=== PATIENT | female | born 1940 | race Caucasian/White ===

== ENCOUNTER 2023-03-29 10:04 | Emergency (ER) | payer BC, SELFPAY ==
[2023-03-29 10:07] VITALS: BP 157/74
--- NOTE | 2023-03-29 10:30 | EDRN ---
Pt received in rm 11, /p trip and fall on Sun, c/o left shoulder and ribcage pain, right shoulder pain, and pain with swelling to left hand. Denies head trauma, on Eliquis. Hx of Afib, PPM, right rotator cuff sx.
--- NOTE | 2023-03-29 10:43 | ED.GENMED ---
History of Present Illness
<MANASA Frances Last Filed: 03/29/23 18:32>
General
Chief Complaint: Fall
Source: patient
Exam Limitations: none
Time Seen by Provider: 03/29/23 10:13
Nursing documentation reviewed up to this point in time: agreed with
Travel History
Have you had any contact with someone who has COVID-19?: No
Do you have any symptoms of coronavirus? Fever > 100 degrees, chills, cough, shortness of breath, sore throat, loss of taste or smell, muscle aches, or headache?: No
History of Present Illness
History of Present Illness:
This is a 83-year-old female with past medical history of A-fib on Eliquis, polycythemia vera, CVA who is presenting to emergency department with left-sided chest wall pain following a fall that occurred 2 days ago. She states that she was walking
on the sidewalk when she tripped and the edge of her foot caught the curb and she subsequently fell forward. She states that she fell onto her left side. She states that worse breathing and laying down. She states that it is most comfortable
sitting up. She states that the or lifting left has been taking Tylenol pain which has been helping the edge off. She states that his rib fractures felt exactly like this. She also admits to some right sided upper trapezius pain. She denies
abdominal pain, shortness of breath dizziness, lightheadedness, headache. Patient does have a history of hemorrhage from a fall in the past.
Past History
<MANASA Frances Last Filed: 03/29/23 18:32>
Past History
ED Past Medical History: Arrthythmia (A. 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
sagittal sinus thrombosis (2016))
ED Past Surgical History: Appendectomy, Cardiac (pacemaker), (times 2) and Other (Mohs surgery on cheek 2020)
Social History
Tobacco: Non-smoker
Alcohol: Occasional
Drug: None
Personal:
Living: with family
Employment: Retired
Family History
Family History: Other (suspected Marfan syndrome and father as well as grandson, Lawrence-Danlos in niece COPD-mom)
Review of Systems
<Clarisa Sutherland PA-C - Last Filed: 03/29/23 18:32>
Review of Systems
All Other Systems: ROS reviewed and negative except as documented in HPI and ROS
Phy Exam
<Clarisa Sutherland PA-C - Last Filed: 03/29/23 18:32>
Physical Exam
Physical Exam:
General: Patient is well-appearing and in no acute distress
Skin: Warm and dry, no rashes or lesions, and no areas of ecchymosis
Cardiac: Regular rate. Tenderness palpation of the left external chest wall underneath the left breast.
Pulm: Normal respiratory effort bilaterally, no wheezes, rales, rhonchi
Musculoskeletal: patient seen spontaneously moving cervical spine. Patient has no midline tenderness to palpation of the cervical spine. Patient does have some tenderness palpation of the right upper trapezius. Patient has limited active range of
motion of b/l upper extremities due to this motion exacerbating her left sided rib pain.
Course
<Clarisa Sutherland PA-C - Last Filed: 03/29/23 18:32>
Orders/Labs/Results
Orders:
Orders
03/29/23 11:34
CT Head W/o Iv Contrast Urgent
Comment:
Reason For Exam: fall
CR Ribs-kemi 4 Vw W/pa Chest Urgent
Comment:
Reason For Exam: left sided rib pain
03/29/23 11:43
CT Cervical Spine W/o Iv Contr Urgent
Comment:
Reason For Exam: fall
CR Shoulder - Right Min 2 View Urgent
Comment:
Reason For Exam: right upper shoulder pain following fall
03/29/23 12:59
Hydrocodone 5/APAP 325 [Roy[place] 5/325] 1 tablet PO NOW STA
Vital Signs
Initial and Last Documented VS:
Initial Vital Signs
Temp Pulse Resp BP Pulse Ox
97.2 F 78 16 157/74 96
03/29/23 10:07 03/29/23 10:07 03/29/23 10:07 03/29/23 10:07 03/29/23 10:07
Last Documented Vital Signs
Temp Pulse Resp BP Pulse Ox
97.2 F 60 16 140/65 95
03/29/23 10:07 03/29/23 15:12 03/29/23 15:12 03/29/23 15:12 03/29/23 15:12
<Derek Julian MD - Last Filed: 03/29/23 13:03>
Orders/Labs/Results
Orders:
Orders
03/29/23 11:34
CT Head W/o Iv Contrast Urgent
Comment:
Reason For Exam: fall
CR Ribs-kemi 4 Vw W/pa Chest Urgent
Comment:
Reason For Exam: left sided rib pain
03/29/23 11:43
CT Cervical Spine W/o Iv Contr Urgent
Comment:
Reason For Exam: fall
CR Shoulder - Right Min 2 View Urgent
Comment:
Reason For Exam: right upper shoulder pain following fall
03/29/23 12:59
Hydrocodone 5/APAP 325 [Roy[place] 5/325] 1 tablet PO NOW STA
Vital Signs
Initial and Last Documented VS:
Initial Vital Signs
Temp Pulse Resp BP Pulse Ox
97.2 F 78 16 157/74 96
03/29/23 10:07 03/29/23 10:07 03/29/23 10:07 03/29/23 10:07 03/29/23 10:07
Last Documented Vital Signs
Temp Pulse Resp BP Pulse Ox
97.2 F 60 16 140/65 95
03/29/23 10:07 03/29/23 15:12 03/29/23 15:12 03/29/23 15:12 03/29/23 15:12
<Clarisa Sutherland PA-C - Last Filed: 03/29/23 18:32>
MDM/Problems Addressed
Differential Diagnosis Includes:
ddx include rib fracture, epidural hematoma, hemorrhage musculoskeletal sprain/strain,
MDM/Problems Addressed:
Left-sided rib pain
Right shoulder pain
Chronic conditions affecting care: HTN, Arrhythmia, COPD and Other (polycythemia vera)
Acute Exacerbation and/or Progression of Chronic Illness:
n/a
<Clarisa Sutherland PA-C - Last Filed: 03/29/23 18:32>
*Pulse Oximetry
Patient hypoxic: no
*Critical Care Note
Total Time (30-74mins, 75-104mins- exclusive of procedures): Not Applicable
Data Reviewed
Review of Other/Old Records Reveals: Discharge Summary (reviewed discharge summary from 05/02/2021)
Prescriptions/Medications Considered But Not Given:
n/a
Further Testing Considered But Not Given:
n/a
<Clarisa Sutherland PA-C - Last Filed: 03/29/23 18:32>
Patient Management
Escalation/DeEscalation of care consider admission/obs:
This is a 83-year-old female with a past medical history of COPD, hypertension, A-fib on Eliquis who presents emergency department today following a fall that occurred 2 days ago. She states that she was walking on the curb when she lost her
balance and tripped, and fell onto her left side. Currently she complains of left-sided rib pain and right shoulder pain. She is well-appearing, and on exam she has no areas of ecchymosis, no crepitus, but does have moderate pain to palpation of
the left external chest wall as well as some mild tenderness palpation of the right shoulder and surrounding musculature. Her imaging does not show any evidence of rib fracture, intracranial bleeding, shoulder fracture or dislocation. Patient was
given a vicodin tablet here in the ER which significantly improved her pain. Patient did feel drowsy with this, advised her to take half a tablet at home.
<Clarisa Sutherland PA-C - Last Filed: 03/29/23 18:32>
Update Note
Update Note:
Upon revaluation after one dose of vicodin, patient feels that her pain has midly improved
ED Attending Note
<Clarisa Sutherland PA-C - Last Filed: 03/29/23 18:32>
-
Portions of this chart may have been created with voice recognition software.� Occasional wrong word or��sound alike� substitutions may have occurred due to the inherent limitations of voice recognition software.
<Derek Julian MD - Last Filed: 03/29/23 13:03>
ED Attending Note
Patient seen and examined by attending physician: Yes
I performed the substantive portion of visit, reviewed & personally made and approve the management plan that is documented in note by myself or ISAAC.: Yes
ED Attending Note:
Patient slipped and fell 2 days ago. No syncope. Complaining of left lateral rib pain. Mild right neck pain and mild right shoulder pain. No head injury. Patient is anticoagulated.
TRAUMA EXAM:
VITAL SIGNS: Vital signs reviewed, cooperative
DISTRESS: No active disease
EYES: Pupils reactive, no orbital trauma
NOSE: No deformity or epistaxis
FACE AND SCALP: No scalp or facial trauma
NECK: Supple mild right paracervical tenderness
BACK: Back nontender, pelvis stable to compression
RESPIRATORY: No distress, breath sounds normal, tender left lateral lower chest wall. No crepitus
CARDIAC: No murmur, pulses equal and strong
ABDOMEN: Soft nontender bowel sounds normal
SKIN: Skin intact no bleeding, color normal
EXTREMITIES: Mild tenderness to the right shoulder although able to abduct without difficulty
NEUROLOGICAL: Alert, oriented, no motor deficits
PSYCH: Mood affect normal
Plan: Although no head trauma given the mechanism of fall and anticoagulation head CT will be done. Cervical spine CT for right paracervical tenderness. Rib series. Doubt pneumothorax. No indication for abdominal scanning as the abdomen is
nontender. No left upper quadrant tenderness. Gait is normal. In no distress.
Likely will be pain management and follow-up
Discharge Plan
Departure
Patient Disposition: Home (Routine Discharge)
Date of Disposition: 03/29/23
Time of Disposition: 15:51
Patient with high blood pressure during this ER visit?: Yes
Condition: Good
Discharge Problem:
Fall, Rib pain on left side
Instructions: Preventing falls in adults, BLOOD PRESSURE
Prescriptions:
New
hydrocodone-acetaminophen 5-300 mg tablet
1 tab PO Q6H PRN (Reason: Pain) Qty: 10 0RF
No Action
hydroxyurea 500 MG capsule
500 mg PO BID
hydroxyurea 500 MG capsule
500 mg PO MOFR@12
Patient Comments:
04/28/21: Per pt, she takes an additional dose of hydroxyurea on Sunday and Sunday in the afternoon
Lactobac 2-Bifido 1-S. therm [High Potency Probiotic] 1 CAP capsule
1 cap PO DAILY
cholecalciferol (vitamin D3) 2,000 UNITS tablet
2,000 units PO DAILY
apixaban [Eliquis] 5 MG tablet
5 mg PO BID
levothyroxine 50 MCG tablet
50 mcg PO DAILY AT 0700
midodrine 5 MG tablet
2.5 mg PO TID@0800,1300,1800 Qty: 90 0RF
ferrous sulfate [FeroSul] 325 MG tablet
325 mg PO DAILY Qty: 30 0RF
Referrals:
Anirudh Zambrano DO [Family Provider] -
Activity Restrictions/Additional Instructions:
We have sent the Vicodin tablets to our pharmacy. Considering you felt a bit drowsy here with the one tablet, I would recommend breaking the tablet in half. You can take one every 6 hours as needed for pain. Please do not take acetaminophen while
taking this drug, as this drug contains acetaminophen.
Please follow up with your primary care provider next week to ensure the resolution of your symptoms and for reassessment.
Please return to emergency department should you have an acute worsening of your pain, experience chest pain, shortness of breath, or other concerning signs or symptoms.
Interventions
Interventions:
*Risk Screen - Suicide Last Done: 03/29/23 10:28
*General Assessment Last Done: 03/29/23 10:07
*Neglect/Abuse Screening Last Done: 03/29/23 10:28
ED- Fall Risk Assessment Last Done: 03/29/23 16:02
*ED COVID-19 Vaccine History Last Done: 03/29/23 10:07
*Nursing Disposition Last Done: 03/29/23 16:02
ED-Musculoskeletal Assessment Last Done: 03/29/23 10:29
ED- Neurological Assessment Last Done: 03/29/23 10:29
ED-Skin Assessment Last Done: 03/29/23 10:29
Discharge Date and Time
Discharge Date/Time: 03/29/23 16:02
[2023-03-29 12:55] VITALS: BP 161/78
[2023-03-29] MEDS: NORCO 5/325 1 TABLET PO (13:05)
[2023-03-29 15:12] VITALS: BP 140/65
== END 2023-03-29 16:02 | disposition home or self-care (01) ==
LOC: EMR 10:04
PROVIDERS: EMERGENCY PHYSICIAN Emergency Medicine; FAMILY PHYSICIAN Internal Medicine Hematology & Oncology
DX: R07.81 Pleurodynia (principal); M25.511 Pain in right shoulder; M79.642 Pain in left hand; M79.89 Other specified soft tissue disorders; W01.0XXA Fall on same level from slipping, tripping and stumbling without subsequent striking against object, initial encounter; Y92.480 Sidewalk as the place of occurrence of the external cause; Y93.01 Activity, walking, marching and hiking; J44.9 Chronic obstructive pulmonary disease, unspecified; I10 Essential (primary) hypertension; I48.91 Unspecified atrial fibrillation; D45 Polycythemia vera; M79.7 Fibromyalgia; E03.9 Hypothyroidism, unspecified; E78.00 Pure hypercholesterolemia, unspecified; Z79.01 Long term (current) use of anticoagulants; Z95.0 Presence of cardiac pacemaker; Z85.828 Personal history of other malignant neoplasm of skin; Z86.73 Personal history of transient ischemic attack (TIA), and cerebral infarction without residual deficits
CPT/HCPCS: 99284; 70450; 71111; 72125; 73030

== ENCOUNTER → 2023-04-16 12:04 | Outpatient (REF) | payer BC, SELFPAY ==
[2023-04-16 15:23] LABS: % Basophils 1.6 % (0-2); % Eosinophils 0.9 % (0-6); % Immature Granulocytes 2.3 % (0-0.5); % Neutrophils 92.2 % (42.2-75.2); Absolute Basophils 0.6 10^3/uL (0-0.2); Absolute Eosinophils 0.3 10^3/uL (0-0.7); Absolute Immature Granulocytes 0.8 10^3/uL (0-0.05); Absolute Lymphocytes 0.7 10^3/uL (1.2-3.4); Absolute Monocytes 0.4 10^3/uL (0.1-0.6); Absolute Neutrophils 33.5 10^3/uL (1.4-6.5); Hemoglobin 13.5 g/dL (12.0-16.0); Mean Corp Hgb Conc. 30.7 g/dL (33.0-37.0); Mean Corpuscular Hgb 30.7 pg (27.0-31.0); Nucleated Red Blood Cells % 0 %; Platelet Count 451 10^3/uL (130-400); Red Cell Dist. Width 17.1 % (11.5-14.5); White Blood Cell Count 36.4 10^3/uL (4.8-10.8)
== END ==
LOC: HWLAB 12:04
PROVIDERS: ATTENDING PHYSICIAN Internal Medicine Hematology & Oncology; FAMILY PHYSICIAN Family Medicine
DX: D45 Polycythemia vera (principal)
CPT/HCPCS: 36415; 85025

== ENCOUNTER → 2023-05-14 11:58 | Outpatient (REF) | payer BC, SELFPAY ==
[2023-05-14 15:37] LABS: % Basophils 1.3 % (0-2); % Eosinophils 1.4 % (0-6); % Immature Granulocytes 1.4 % (0-0.5); % Lymphocytes 2.8 % (20.5-51.1); % Monocytes 1.2 % (1.7-9.3); % Neutrophils 91.9 % (42.2-75.2); Absolute Basophils 0.3 10^3/uL (0-0.2); Absolute Eosinophils 0.4 10^3/uL (0-0.7); Absolute Immature Granulocytes 0.4 10^3/uL (0-0.05); Absolute Lymphocytes 0.7 10^3/uL (1.2-3.4); Absolute Monocytes 0.3 10^3/uL (0.1-0.6); Absolute Neutrophils 24.5 10^3/uL (1.4-6.5); Hematocrit 46.5 % (37.0-47.0); Hemoglobin 13.8 g/dL (12.0-16.0); Mean Corp Hgb Conc. 29.7 g/dL (33.0-37.0); Mean Corpuscular Hgb 29.2 pg (27.0-31.0); Mean Corpuscular Volume 98.3 fL (81.0-99.0); Mean Platelet Volume 12.2 fL (7.4-10.4); Nucleated Red Blood Cells % 0 %; Platelet Count 394 10^3/uL (130-400); Red Blood Cell Count 4.73 10^6/uL (4.20-5.40); Red Cell Dist. Width 17.6 % (11.5-14.5); White Blood Cell Count 26.7 10^3/uL (4.8-10.8)
== END ==
LOC: HWLAB 11:58
PROVIDERS: ATTENDING PHYSICIAN Internal Medicine Cardiovascular Disease; FAMILY PHYSICIAN Family Medicine; REFERRING PHYSICIAN Internal Medicine Hematology & Oncology
DX: E78.5 Hyperlipidemia, unspecified (principal); D45 Polycythemia vera
CPT/HCPCS: 36415; 85025

== ENCOUNTER → 2023-06-27 13:10 | Outpatient (REF) | payer BC, SELFPAY ==
[2023-06-27 16:00] LABS: % Basophils 1.6 % (0-2); % Eosinophils 0.6 % (0-6); % Immature Granulocytes 1.6 % (0-0.5); % Lymphocytes 2.7 % (20.5-51.1); % Monocytes 1.2 % (1.7-9.3); % Neutrophils 92.3 % (42.2-75.2); Absolute Basophils 0.3 10^3/uL (0-0.2); Absolute Eosinophils 0.1 10^3/uL (0-0.7); Absolute Immature Granulocytes 0.3 10^3/uL (0-0.05); Absolute Lymphocytes 0.6 10^3/uL (1.2-3.4); Absolute Monocytes 0.2 10^3/uL (0.1-0.6); Absolute Neutrophils 19.2 10^3/uL (1.4-6.5); Hematocrit 39.4 % (37.0-47.0); Hemoglobin 11.8 g/dL (12.0-16.0); Mean Corp Hgb Conc. 29.9 g/dL (33.0-37.0); Mean Corpuscular Volume 96.8 fL (81.0-99.0); Mean Platelet Volume 11.7 fL (7.4-10.4); Nucleated Red Blood Cells % 0 %; Platelet Count 496 10^3/uL (130-400); Red Blood Cell Count 4.07 10^6/uL (4.20-5.40); Red Cell Dist. Width 17.2 % (11.5-14.5); White Blood Cell Count 20.8 10^3/uL (4.8-10.8)
== END ==
LOC: HWLAB 13:10
PROVIDERS: ATTENDING PHYSICIAN Internal Medicine Hematology & Oncology; FAMILY PHYSICIAN Family Medicine
DX: D45 Polycythemia vera (principal)
CPT/HCPCS: 36415; 85025

== ENCOUNTER → 2023-08-03 11:39 | Outpatient (REF) | payer BC, SELFPAY ==
[2023-08-03 15:07] LABS: % Basophils 1.4 % (0-2); % Eosinophils 0.4 % (0-6); % Immature Granulocytes 2.9 % (0-0.5); % Lymphocytes 3.3 % (20.5-51.1); % Monocytes 1.2 % (1.7-9.3); % Neutrophils 90.8 % (42.2-75.2); Absolute Basophils 0.4 10^3/uL (0-0.2); Absolute Eosinophils 0.1 10^3/uL (0-0.7); Absolute Immature Granulocytes 0.9 10^3/uL (0-0.05); Absolute Monocytes 0.4 10^3/uL (0.1-0.6); Absolute Neutrophils 27.6 10^3/uL (1.4-6.5); Hematocrit 40.1 % (37.0-47.0); Hemoglobin 12.1 g/dL (12.0-16.0); Mean Corp Hgb Conc. 30.2 g/dL (33.0-37.0); Mean Corpuscular Hgb 29.1 pg (27.0-31.0); Mean Corpuscular Volume 96.4 fL (81.0-99.0); Mean Platelet Volume 11.9 fL (7.4-10.4); Nucleated Red Blood Cells % 0 %; Platelet Count 434 10^3/uL (130-400); Red Blood Cell Count 4.16 10^6/uL (4.20-5.40); Red Cell Dist. Width 17.5 % (11.5-14.5); White Blood Cell Count 30.4 10^3/uL (4.8-10.8)
[2023-08-03 15:16] LABS: Iron 33 ug/dl (37-170)
[2023-08-03 15:26] LABS: Percent Saturation 7 % (20-50); Total Iron Binding Capacity 464 ug/dl (265-497)
[2023-08-03 15:51] LABS: Ferritin 9.5 ng/ml (11.1-264.0)
== END ==
LOC: HWLAB 11:39
PROVIDERS: ATTENDING PHYSICIAN Internal Medicine Hematology & Oncology; FAMILY PHYSICIAN Family Medicine
DX: D45 Polycythemia vera (principal)
CPT/HCPCS: 36415; 82728; 83540; 83550; 85025

== ENCOUNTER → 2023-09-04 08:09 | Outpatient (REF) | payer BC, SELFPAY ==
[2023-09-04 10:31] LABS: % Basophils 1.7 % (0-2); % Eosinophils 0.7 % (0-6); % Immature Granulocytes 1.8 % (0-0.5); % Lymphocytes 2.6 % (20.5-51.1); % Monocytes 0.9 % (1.7-9.3); % Neutrophils 92.3 % (42.2-75.2); Absolute Basophils 0.5 10^3/uL (0-0.2); Absolute Eosinophils 0.2 10^3/uL (0-0.7); Absolute Immature Granulocytes 0.5 10^3/uL (0-0.05); Absolute Lymphocytes 0.7 10^3/uL (1.2-3.4); Absolute Monocytes 0.2 10^3/uL (0.1-0.6); Absolute Neutrophils 24.7 10^3/uL (1.4-6.5); Hematocrit 40.9 % (37.0-47.0); Hemoglobin 12.2 g/dL (12.0-16.0); Mean Corp Hgb Conc. 29.8 g/dL (33.0-37.0); Mean Corpuscular Hgb 28.8 pg (27.0-31.0); Mean Corpuscular Volume 96.7 fL (81.0-99.0); Mean Platelet Volume 11.4 fL (7.4-10.4); Nucleated Red Blood Cells % 0 %; Platelet Count 382 10^3/uL (130-400); Red Blood Cell Count 4.23 10^6/uL (4.20-5.40); Red Cell Dist. Width 17.6 % (11.5-14.5); White Blood Cell Count 26.7 10^3/uL (4.8-10.8)
== END ==
LOC: HWLAB 08:09
PROVIDERS: ATTENDING PHYSICIAN Internal Medicine Hematology & Oncology; FAMILY PHYSICIAN Family Medicine
DX: D45 Polycythemia vera (principal)
CPT/HCPCS: 36415; 85025

== ENCOUNTER → 2023-10-01 06:41 | Day surgery (SDC) | payer BC, SELFPAY | LOC: GI 06:41 | PROVIDERS: ATTENDING PHYSICIAN Internal Medicine | DX: R19.4 Change in bowel habit (principal); K57.30 Diverticulosis of large intestine without perforation or abscess without bleeding; D12.0 Benign neoplasm of cecum | CPT/HCPCS: 45385; 88305 ==

== ENCOUNTER → 2023-10-30 07:59 | Outpatient (REF) | payer BC, SELFPAY ==
[2023-10-30 09:48] LABS: Hematocrit 40.6 % (37.0-47.0); Hemoglobin 12.4 g/dL (12.0-16.0); Mean Corp Hgb Conc. 30.5 g/dL (33.0-37.0); Mean Corpuscular Hgb 29.2 pg (27.0-31.0); Mean Corpuscular Volume 95.8 fL (81.0-99.0); Mean Platelet Volume 11.3 fL (7.4-10.4); Platelet Count 404 10^3/uL (130-400); Red Blood Cell Count 4.24 10^6/uL (4.20-5.40); Red Cell Dist. Width 17.8 % (11.5-14.5); White Blood Cell Count 25.9 10^3/uL (4.8-10.8)
[2023-10-30 09:50] LABS: ALT (SGPT) 25 U/L (0-35); AST (SGOT) 49 U/L (14-36); Albumin 4.4 g/dl (3.5-5.0); Alkaline Phosphatase 125 U/L (38-126); Blood Urea Nitrogen 17 mg/dl (7-17); Carbon Dioxide 29 mmol/L (22-30); Chloride 105 mmol/L (98-107); Glucose 87 mg/dl (70-99); HDL Cholesterol 72 mg/dl; LDL Cholesterol, Calculated 83 mg/dl; Potassium 4.5 mmol/L (3.5-5.1); Sodium 145 mmol/L (135-145); Total Bilirubin 0.8 mg/dl (0.2-1.3); Total Cholesterol 181 mg/dl (50-199); Total Protein 6.8 g/dl (6.3-8.2); Triglyceride 130 mg/dl (10-149); Very Low Density Lipoprotein 26 mg/dl (0-30); eGFR 41.31
[2023-10-30 10:54] LABS: % Basophils 2.1 % (0-2); % Eosinophils 0.9 % (0-6); % Immature Granulocytes 1.7 % (0-0.5); % Lymphocytes 3.8 % (20.5-51.1); % Monocytes 1.6 % (1.7-9.3); % Neutrophils 89.9 % (42.2-75.2); Absolute Basophils 0.5 10^3/uL (0-0.2); Absolute Eosinophils 0.2 10^3/uL (0-0.7); Absolute Immature Granulocytes 0.4 10^3/uL (0-0.05); Absolute Monocytes 0.4 10^3/uL (0.1-0.6); Absolute Neutrophils 23.3 10^3/uL (1.4-6.5); Nucleated Red Blood Cells % 0 %
== END ==
LOC: HWLAB 07:59
PROVIDERS: ATTENDING PHYSICIAN Internal Medicine Hematology & Oncology; FAMILY PHYSICIAN Family Medicine; REFERRING PHYSICIAN Internal Medicine Cardiovascular Disease
DX: E78.5 Hyperlipidemia, unspecified (principal); D45 Polycythemia vera
CPT/HCPCS: 36415; 80053; 80061; 85025

== ENCOUNTER → 2023-12-03 10:14 | Outpatient (REF) | payer BC, SELFPAY ==
[2023-12-03 13:05] LABS: Free T4 1.83 ng/dl (0.78-2.19)
[2023-12-03 13:19] LABS: TSH 7.24 uIU/ml (0.47-4.68)
[2023-12-03 13:27] LABS: % Basophils 1.4 % (0-2); % Eosinophils 0.6 % (0-6); % Immature Granulocytes 1.9 % (0-0.5); % Lymphocytes 1.8 % (20.5-51.1); % Monocytes 1.4 % (1.7-9.3); % Neutrophils 92.9 % (42.2-75.2); Absolute Basophils 0.5 10^3/uL (0-0.2); Absolute Eosinophils 0.2 10^3/uL (0-0.7); Absolute Immature Granulocytes 0.7 10^3/uL (0-0.05); Absolute Lymphocytes 0.6 10^3/uL (1.2-3.4); Absolute Monocytes 0.5 10^3/uL (0.1-0.6); Absolute Neutrophils 32.1 10^3/uL (1.4-6.5); Hematocrit 39.2 % (37.0-47.0); Hemoglobin 11.6 g/dL (12.0-16.0); Mean Corp Hgb Conc. 29.6 g/dL (33.0-37.0); Mean Corpuscular Hgb 28.6 pg (27.0-31.0); Mean Corpuscular Volume 96.6 fL (81.0-99.0); Mean Platelet Volume 11.9 fL (7.4-10.4); Nucleated Red Blood Cells % 0 %; Platelet Count 417 10^3/uL (130-400); Red Blood Cell Count 4.06 10^6/uL (4.20-5.40); Red Cell Dist. Width 17.3 % (11.5-14.5); White Blood Cell Count 34.5 10^3/uL (4.8-10.8)
== END ==
LOC: HWLAB 10:14
PROVIDERS: ATTENDING PHYSICIAN Internal Medicine Hematology & Oncology; FAMILY PHYSICIAN Family Medicine; REFERRING PHYSICIAN Internal Medicine Cardiovascular Disease
DX: I48.91 Unspecified atrial fibrillation (principal); Z79.899 Other long term (current) drug therapy; E03.9 Hypothyroidism, unspecified; D45 Polycythemia vera
CPT/HCPCS: 36415; 84439; 84443; 85025

== ENCOUNTER → 2024-01-08 11:35 | Outpatient (REF) | payer BC, SELFPAY ==
[2024-01-08 17:09] LABS: % Basophils 1.3 % (0-2); % Eosinophils 0.9 % (0-6); % Immature Granulocytes 3.8 % (0-0.5); % Lymphocytes 2.3 % (20.5-51.1); % Neutrophils 90.7 % (42.2-75.2); Absolute Basophils 0.6 10^3/uL (0-0.2); Absolute Eosinophils 0.4 10^3/uL (0-0.7); Absolute Immature Granulocytes 1.7 10^3/uL (0-0.05); Absolute Lymphocytes 1.1 10^3/uL (1.2-3.4); Absolute Monocytes 0.4 10^3/uL (0.1-0.6); Absolute Neutrophils 41.9 10^3/uL (1.4-6.5); Hematocrit 37.8 % (37.0-47.0); Hemoglobin 11.3 g/dL (12.0-16.0); Mean Corp Hgb Conc. 29.9 g/dL (33.0-37.0); Mean Corpuscular Hgb 29.7 pg (27.0-31.0); Mean Corpuscular Volume 99.5 fL (81.0-99.0); Mean Platelet Volume 11.8 fL (7.4-10.4); Nucleated Red Blood Cells % 0 %; Platelet Count 564 10^3/uL (130-400); White Blood Cell Count 46.1 10^3/uL (4.8-10.8)
== END ==
LOC: HWLAB 11:35
PROVIDERS: ATTENDING PHYSICIAN Internal Medicine Hematology & Oncology; FAMILY PHYSICIAN Family Medicine
DX: D45 Polycythemia vera (principal)
CPT/HCPCS: 36415; 85025

== ENCOUNTER → 2024-02-13 11:42 | Outpatient (REF) | payer BC, SELFPAY ==
[2024-02-13 14:56] LABS: Hematocrit 39.8 % (37.0-47.0); Hemoglobin 11.6 g/dL (12.0-16.0); Mean Corp Hgb Conc. 29.1 g/dL (33.0-37.0); Mean Corpuscular Hgb 28.9 pg (27.0-31.0); Mean Platelet Volume 11.6 fL (7.4-10.4); Platelet Count 463 10^3/uL (130-400); Red Blood Cell Count 4.02 10^6/uL (4.20-5.40); Red Cell Dist. Width 18.1 % (11.5-14.5); White Blood Cell Count 28.7 10^3/uL (4.8-10.8)
[2024-02-13 15:03] LABS: Iron 39 ug/dl (37-170)
[2024-02-13 15:12] LABS: Percent Saturation 8 % (20-50); Total Iron Binding Capacity 458 ug/dl (265-497)
[2024-02-13 15:23] LABS: % Basophils 1.7 % (0-2); % Immature Granulocytes 1.6 % (0-0.5); % Lymphocytes 2.5 % (20.5-51.1); % Monocytes 0.9 % (1.7-9.3); % Neutrophils 92.3 % (42.2-75.2); Absolute Basophils 0.5 10^3/uL (0-0.2); Absolute Eosinophils 0.3 10^3/uL (0-0.7); Absolute Immature Granulocytes 0.5 10^3/uL (0-0.05); Absolute Lymphocytes 0.7 10^3/uL (1.2-3.4); Absolute Monocytes 0.3 10^3/uL (0.1-0.6); Absolute Neutrophils 26.5 10^3/uL (1.4-6.5); Nucleated Red Blood Cells % 0.1 %
[2024-02-13 15:36] LABS: Ferritin 9.8 ng/ml (11.1-264.0)
== END ==
LOC: HWLAB 11:42
PROVIDERS: ATTENDING PHYSICIAN Internal Medicine Hematology & Oncology; FAMILY PHYSICIAN Family Medicine
DX: D45 Polycythemia vera (principal)
CPT/HCPCS: 36415; 82728; 83540; 83550; 85025

== ENCOUNTER → 2024-03-19 13:17 | Outpatient (REF) | payer BC, SELFPAY | LOC: HWRAD 13:17 | PROVIDERS: ATTENDING PHYSICIAN Nurse Practitioner Family | DX: J20.9 Acute bronchitis, unspecified (principal) | CPT/HCPCS: 71046 ==

== ENCOUNTER → 2024-04-15 11:30 | Outpatient (REF) | payer BC, SELFPAY ==
[2024-04-15 12:55] LABS: Hematocrit 41.5 % (37.0-47.0); Hemoglobin 12.3 g/dL (12.0-16.0); Mean Corp Hgb Conc. 29.6 g/dL (33.0-37.0); Mean Corpuscular Hgb 28.5 pg (27.0-31.0); Mean Corpuscular Volume 96.3 fL (81.0-99.0); Mean Platelet Volume 11.3 fL (7.4-10.4); Platelet Count 537 10^3/uL (130-400); Red Blood Cell Count 4.31 10^6/uL (4.20-5.40); Red Cell Dist. Width 18.3 % (11.5-14.5); White Blood Cell Count 28.5 10^3/uL (4.8-10.8)
[2024-04-15 14:15] LABS: % Basophils 0.8 % (0-2); % Eosinophils 0.9 % (0-6); % Immature Granulocytes 1.5 % (0-0.5); % Lymphocytes 2.6 % (20.5-51.1); % Monocytes 1.4 % (1.7-9.3); % Neutrophils 92.8 % (42.2-75.2); Absolute Basophils 0.2 10^3/uL (0-0.2); Absolute Eosinophils 0.3 10^3/uL (0-0.7); Absolute Immature Granulocytes 0.4 10^3/uL (0-0.05); Absolute Lymphocytes 0.8 10^3/uL (1.2-3.4); Absolute Monocytes 0.4 10^3/uL (0.1-0.6); Absolute Neutrophils 26.5 10^3/uL (1.4-6.5); Nucleated Red Blood Cells % 0.1 %
== END ==
LOC: HWRAD 11:30
PROVIDERS: ATTENDING PHYSICIAN Nurse Practitioner Family; FAMILY PHYSICIAN Family Medicine; REFERRING PHYSICIAN Internal Medicine Hematology & Oncology
DX: M54.50 Low back pain, unspecified (principal); D45 Polycythemia vera
CPT/HCPCS: 36415; 72110; 85025

== ENCOUNTER → 2024-05-08 13:08 | Outpatient (REF) | payer BC, MEDICARE, SELFPAY ==
[2024-05-08 15:50] LABS: % Eosinophils 0.4 % (0-6); % Immature Granulocytes 1.7 % (0-0.5); % Lymphocytes 3.3 % (20.5-51.1); % Monocytes 1.5 % (1.7-9.3); % Neutrophils 91.1 % (42.2-75.2); Absolute Basophils 0.5 10^3/uL (0-0.2); Absolute Eosinophils 0.1 10^3/uL (0-0.7); Absolute Immature Granulocytes 0.4 10^3/uL (0-0.05); Absolute Lymphocytes 0.8 10^3/uL (1.2-3.4); Absolute Monocytes 0.4 10^3/uL (0.1-0.6); Absolute Neutrophils 22.4 10^3/uL (1.4-6.5); Hematocrit 41.8 % (37.0-47.0); Hemoglobin 11.9 g/dL (12.0-16.0); Mean Corp Hgb Conc. 28.5 g/dL (33.0-37.0); Mean Corpuscular Hgb 28.4 pg (27.0-31.0); Mean Corpuscular Volume 99.8 fL (81.0-99.0); Mean Platelet Volume 11.6 fL (7.4-10.4); Normal RBC Morphology No; Nucleated Red Blood Cells % 0.1 %; Platelet Count 503 10^3/uL (130-400); Red Blood Cell Count 4.19 10^6/uL (4.20-5.40); Red Cell Dist. Width 18.3 % (11.5-14.5); White Blood Cell Count 24.6 10^3/uL (4.8-10.8)
[2024-05-08 15:51] LABS: Hypochromasia 2+; Stomatocytes 3+
[2024-05-08 15:53] LABS: Microcytosis 1+
== END ==
LOC: HWRAD 13:08
PROVIDERS: ATTENDING PHYSICIAN Nurse Practitioner Family; FAMILY PHYSICIAN Family Medicine; OTHER PHYSICIAN Internal Medicine Cardiovascular Disease; OTHER PHYSICIAN Physician Assistant; REFERRING PHYSICIAN Internal Medicine Hematology & Oncology
DX: M85.80 Other specified disorders of bone density and structure, unspecified site (principal); D45 Polycythemia vera; S32.018 Other fracture of first lumbar vertebra; I48.91 Unspecified atrial fibrillation; Z79.899 Other long term (current) drug therapy; E03.9 Hypothyroidism, unspecified
CPT/HCPCS: 36415; 84439; 84443; 85025

== ENCOUNTER → 2024-06-18 13:16 | Outpatient (REF) | payer BC, SELFPAY | LOC: MRI 13:16 | PROVIDERS: ATTENDING PHYSICIAN Nurse Practitioner Family; FAMILY PHYSICIAN Family Medicine | DX: M51.360 Other intervertebral disc degeneration, lumbar region with discogenic back pain only (principal) | CPT/HCPCS: 72148; 76014; 76015 ==

== ENCOUNTER → 2024-07-02 11:22 | Outpatient (REF) | payer BC, SELFPAY ==
[2024-07-02 16:59] LABS: Hematocrit 40.4 % (37.0-47.0); Hemoglobin 11.8 g/dL (12.0-16.0); Mean Corp Hgb Conc. 29.2 g/dL (33.0-37.0); Mean Corpuscular Hgb 29.6 pg (27.0-31.0); Mean Corpuscular Volume 101.3 fL (81.0-99.0); Mean Platelet Volume 12.8 fL (7.4-10.4); Platelet Count 296 10^3/uL (130-400); Red Blood Cell Count 3.99 10^6/uL (4.20-5.40); Red Cell Dist. Width 18.4 % (11.5-14.5); White Blood Cell Count 15.3 10^3/uL (4.8-10.8)
[2024-07-02 17:02] LABS: ALT (SGPT) 25 U/L (0-35); AST (SGOT) 35 U/L (14-36); Albumin 3.9 g/dl (3.5-5.0); Alkaline Phosphatase 98 U/L (38-126); Blood Urea Nitrogen 18 mg/dl (7-17); Calcium 9.7 mg/dl (8.4-10.2); Carbon Dioxide 28 mmol/L (22-30); Chloride 105 mmol/L (98-107); Glucose 91 mg/dl (70-99); Iron 38 ug/dl (37-170); Potassium 4.6 mmol/L (3.5-5.1); Sodium 141 mmol/L (135-145); Total Bilirubin 0.7 mg/dl (0.2-1.3); Total Protein 6.3 g/dl (6.3-8.2); eGFR 56.25
[2024-07-02 17:13] LABS: Percent Saturation 8 % (20-50); Total Iron Binding Capacity 449 ug/dl (265-497)
[2024-07-02 17:20] LABS: Vitamin D, 25-OH*** 47.8 ng/mL (30-80)
[2024-07-02 17:52] LABS: % Basophils 1.8 % (0-2); % Eosinophils 0.9 % (0-6); % Immature Granulocytes 1.5 % (0-0.5); % Lymphocytes 3.7 % (20.5-51.1); % Neutrophils 91.1 % (42.2-75.2); Absolute Basophils 0.3 10^3/uL (0-0.2); Absolute Eosinophils 0.1 10^3/uL (0-0.7); Absolute Immature Granulocytes 0.2 10^3/uL (0-0.05); Absolute Lymphocytes 0.6 10^3/uL (1.2-3.4); Absolute Monocytes 0.2 10^3/uL (0.1-0.6); Nucleated Red Blood Cells % 0 %
[2024-07-02 18:10] LABS: Folate 3.2 ng/ml (2.76-20); Vitamin B12 > 1000 pg/ml (239-931)
== END ==
LOC: HWLAB 11:22
PROVIDERS: ATTENDING PHYSICIAN Internal Medicine Cardiovascular Disease; FAMILY PHYSICIAN Family Medicine; REFERRING PHYSICIAN Internal Medicine Hematology & Oncology
DX: I10 Essential (primary) hypertension (principal); I48.91 Unspecified atrial fibrillation; D45 Polycythemia vera
CPT/HCPCS: 36415; 80053; 82306; 82607; 82728; 82746; 83540; 83550; 85025

== ENCOUNTER → 2024-07-30 07:56 | Outpatient (REF) | payer BC, SELFPAY ==
[2024-07-30 09:38] LABS: Hematocrit 40.4 % (37.0-47.0); Hemoglobin 11.7 g/dL (12.0-16.0); Mean Corpuscular Hgb 29.6 pg (27.0-31.0); Mean Corpuscular Volume 102.3 fL (81.0-99.0); Mean Platelet Volume 11.9 fL (7.4-10.4); Platelet Count 388 10^3/uL (130-400); Red Blood Cell Count 3.95 10^6/uL (4.20-5.40); Red Cell Dist. Width 19.2 % (11.5-14.5); White Blood Cell Count 25.4 10^3/uL (4.8-10.8)
[2024-07-30 09:57] LABS: % Basophils 1.4 % (0-2); % Eosinophils 0.6 % (0-6); % Lymphocytes 2.9 % (20.5-51.1); % Monocytes 1.4 % (1.7-9.3); % Neutrophils 91.7 % (42.2-75.2); ALT (SGPT) 31 U/L (0-35); AST (SGOT) 45 U/L (14-36); Absolute Basophils 0.4 10^3/uL (0-0.2); Absolute Eosinophils 0.2 10^3/uL (0-0.7); Absolute Immature Granulocytes 0.5 10^3/uL (0-0.05); Absolute Lymphocytes 0.7 10^3/uL (1.2-3.4); Absolute Monocytes 0.4 10^3/uL (0.1-0.6); Absolute Neutrophils 23.3 10^3/uL (1.4-6.5); Albumin 4.4 g/dl (3.5-5.0); Alkaline Phosphatase 104 U/L (38-126); Blood Urea Nitrogen 15 mg/dl (7-17); Calcium 9.7 mg/dl (8.4-10.2); Carbon Dioxide 25 mmol/L (22-30); Chloride 110 mmol/L (98-107); Glucose 90 mg/dl (70-99); HDL Cholesterol 63 mg/dl; LDL Cholesterol, Calculated 69 mg/dl; Nucleated Red Blood Cells % 0 %; Potassium 4.6 mmol/L (3.5-5.1); Sodium 144 mmol/L (135-145); Total Bilirubin 0.7 mg/dl (0.2-1.3); Total Cholesterol 160 mg/dl (50-199); Total Protein 6.6 g/dl (6.3-8.2); Triglyceride 142 mg/dl (10-149); Very Low Density Lipoprotein 28 mg/dl (0-30); eGFR 45.19
[2024-07-30 11:42] LABS: TSH 9.08 uIU/ml (0.47-4.68)
[2024-07-30 13:49] LABS: Free T4 1.92 ng/dl (0.78-2.19)
== END ==
LOC: HWLAB 07:56
PROVIDERS: ATTENDING PHYSICIAN Physician Assistant; FAMILY PHYSICIAN Nurse Practitioner Family; OTHER PHYSICIAN Family Medicine; REFERRING PHYSICIAN Internal Medicine Hematology & Oncology
DX: E03.8 Other specified hypothyroidism (principal); Z00.00 Encounter for general adult medical examination without abnormal findings; M81.0 Age-related osteoporosis without current pathological fracture; E03.9 Hypothyroidism, unspecified; D45 Polycythemia vera
CPT/HCPCS: 36415; 80053; 80061; 82306; 84439; 84443; 85025

== ENCOUNTER 2024-08-11 06:22 | Emergency (ER) | payer BC, SELFPAY ==
[2024-08-11 06:25] VITALS: BP 155/75
--- NOTE | 2024-08-11 08:06 | ED.GENMED ---
History of Present Illness
General
Chief Complaint: Skin Problem
Source: patient
Exam Limitations: none
Time Seen by Provider: 08/11/24 06:49
Nursing documentation reviewed up to this point in time: agreed with
History of Present Illness
History of Present Illness:
Pt presents to ED secondary to painful swelling in her left buttock over the past one week. She has had similar abscess in the past, which she has drained in the past on her own. However, due to its current location, she has not been able to reach
the region. Denies fever. Denies nausea/vomiting. Denies trauma. Denies difficulty with bowel movement.
Past History
Past History
ED Past Medical History: Arrthythmia (A. 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
sagittal sinus thrombosis (2016))
ED Past Surgical History: Appendectomy, Cardiac (pacemaker), (times 2) and Other (Mohs surgery on cheek 2020)
Social History
Tobacco: Non-smoker
Alcohol: Occasional
Drug: None
Personal:
Living: with family
Employment: Retired
Family History
Family History: Other (suspected Marfan syndrome and father as well as grandson, Lawrence-Danlos in niece COPD-mom)
Review of Systems
Review of Systems
Allergies reviewed?: Yes
All Other Systems: ROS reviewed and negative except as documented in HPI and ROS
Constitutional: Reports no symptoms
ABD/GI: Reports no symptoms
Musculoskeletal: Reports no symptoms
Skin: Reports other (buttock abscess)
Neurological: Reports no symptoms
Phy Exam
Physical Exam
Physical Exam:
General: well nourished female, in mild painful distress. Afebrile
Heent: nc/at. eomi
Abd: soft and nontender.
Neuro: aao x 3. no focal neurological deficit.
Skin: an approx 0.5 cm lesion noted along left buttock, lateral to anus, with open purulent drainage. no surrounding erythema/fluctuance
Psych: pleasant and cooperative
Course
Orders/Labs/Results
Orders:
Orders
08/11/24 09:09
Wound Culture [Wound/Abscess/Other Culture] Urgent
ROSANA Source: Buttock
Specimen Description:
Date Specimen was Collected: 08/11/24
Time Specimen was Collected: 09:08
Vital Signs
Initial and Last Documented VS:
Initial Vital Signs
Pulse Resp BP Pulse Ox
70 18 155/75 97
08/11/24 06:25 08/11/24 06:25 08/11/24 06:25 08/11/24 06:25
Last Documented Vital Signs
Pulse Resp BP Pulse Ox
84 20 142/86 99
08/11/24 08:30 08/11/24 08:30 08/11/24 08:30 08/11/24 08:30
Procedures
Incision/Drainage/Joint Aspiration
Left Buttock:
Anethesia: 1% Lidocaine with Epi
Preparation: cleaned with alcohol wipe
Type of procedure: incise and drain
Nature of site: abscess
Description of abscess: less than 3cm
How much fluid was obtained?: small amount
Fluid description: purulent
Treatment: left open for drainage
MDM/Problems Addressed
MDM/Problems Addressed:
Area opened further with #11 blade with expression of small amount of pus. Will advise continual warm compress/sitz bath along with referral to colorectal surgery for re-evaluation. Bactrim started x 5 days. Pt and spouse expressed understanding at
time of discharge.
*Pulse Oximetry
Patient hypoxic: no (97%)
*Critical Care Note
Total Time (30-74mins, 75-104mins- exclusive of procedures): Not Applicable
ED Attending Note
-
Portions of this chart may have been created with voice recognition software.� Occasional wrong word or��sound alike� substitutions may have occurred due to the inherent limitations of voice recognition software.
Discharge Plan
Departure
Patient Disposition: Home (Routine Discharge)
Date of Disposition: 08/11/24
Time of Disposition: 08:06
Patient with high blood pressure during this ER visit?: Yes
Condition: Good
Discharge Problem:
[place]at[place]-rectal abscess
Instructions: Skin Abscess
Prescriptions:
New
sulfamethoxazole-trimethoprim [Bactrim DS] 800-160 mg tablet
1 tab PO Q12H Qty: 10 0RF
No Action
hydroxyurea 500 MG capsule
500 mg PO BID
hydroxyurea 500 MG capsule
500 mg PO MOFR@12
Patient Comments:
04/28/21: Per pt, she takes an additional dose of hydroxyurea on Sunday and Sunday in the afternoon
Lactobac 2-Bifido 1-S. therm [High Potency Probiotic] 1 CAP capsule
1 cap PO DAILY
cholecalciferol (vitamin D3) 2,000 UNITS tablet
2,000 units PO DAILY
apixaban [Eliquis] 5 MG tablet
5 mg PO BID
levothyroxine 50 MCG tablet
50 mcg PO DAILY AT 0700
midodrine 5 MG tablet
2.5 mg PO TID@0800,1300,1800 Qty: 90 0RF
ferrous sulfate [FeroSul] 325 MG tablet
325 mg PO DAILY Qty: 30 0RF
hydrocodone-acetaminophen 5-300 mg tablet
1 tab PO Q6H PRN (Reason: Pain) Qty: 10 0RF
Referrals:
Johnny Mcdonough MD [Active, ColoRectal]
Derek Gardner DO [Family Provider, Family Practice]
Activity Restrictions/Additional Instructions:
As discussed, please follow-up with your primary concern and/or referred to colorectal surgeon for reevaluation. Your prescriptions were sent electronically to [facility] in [place]. Please continue to apply warm compress to your wound
in buttock, as often as you can.
Interventions
Interventions:
*Risk Screen - Suicide Last Done: 08/11/24 06:25
*General Assessment Last Done: 08/11/24 08:30
*Neglect/Abuse Screening Last Done: 08/11/24 06:25
*Nursing Disposition Last Done: 08/11/24 09:13
ED-Skin Assessment Last Done: 08/11/24 08:30
Discharge Date and Time
Discharge Date/Time: 08/11/24 09:14
Print Language: MALTESE
[2024-08-11 08:30] VITALS: BP 142/86
== END 2024-08-11 09:14 | disposition home or self-care (01) ==
LOC: EMR 06:22
PROVIDERS: EMERGENCY PHYSICIAN Emergency Medicine; FAMILY PHYSICIAN Family Medicine
DX: K61.1 Rectal abscess (principal); E03.9 Hypothyroidism, unspecified; E78.00 Pure hypercholesterolemia, unspecified; I48.91 Unspecified atrial fibrillation; J44.9 Chronic obstructive pulmonary disease, unspecified; M79.7 Fibromyalgia; Z85.828 Personal history of other malignant neoplasm of skin; Z90.49 Acquired absence of other specified parts of digestive tract; Z95.0 Presence of cardiac pacemaker
CPT/HCPCS: 99283; 46050; 87070; 87205

== ENCOUNTER → 2024-09-29 10:39 | Outpatient (REF) | payer BC, SELFPAY ==
[2024-09-29 16:18] LABS: Hematocrit 38.2 % (37.0-47.0); Hemoglobin 11.1 g/dL (12.0-16.0); Mean Corp Hgb Conc. 29.1 g/dL (33.0-37.0); Mean Corpuscular Volume 99.0 fL (81.0-99.0); Platelet Count 205 10^3/uL (130-400); Red Cell Dist. Width 18.5 % (11.5-14.5)
[2024-09-29 16:39] LABS: TSH 6.00 uIU/ml (0.47-4.68)
[2024-09-29 17:15] LABS: Nucleated Red Blood Cells % 0 %
== END ==
LOC: HWLAB 10:39
PROVIDERS: ATTENDING PHYSICIAN Internal Medicine Hematology & Oncology; FAMILY PHYSICIAN Family Medicine; REFERRING PHYSICIAN Physician Assistant
DX: E03.9 Hypothyroidism, unspecified (principal); D45 Polycythemia vera
CPT/HCPCS: 36415; 84439; 84443; 85025

== ENCOUNTER → 2024-10-28 12:35 | Outpatient (REF) | payer BC, SELFPAY ==
[2024-10-28 17:39] LABS: Anisocytosis 2+; Hypochromasia 1+; Macrocytosis 2+; Normal RBC Morphology No; Polychromasia 1+; Spherocytes 1+; Stomatocytes 1+; Target Cells Occasional
[2024-10-28 17:52] LABS: Hematocrit 35.9 % (37.0-47.0); Hemoglobin 10.3 g/dL (12.0-16.0); Mean Corp Hgb Conc. 28.7 g/dL (33.0-37.0); Mean Corpuscular Volume 99.2 fL (81.0-99.0); Nucleated Red Blood Cells % 0 %; Platelet Count 555 10^3/uL (130-400); Red Cell Dist. Width 19.7 % (11.5-14.5)
== END ==
LOC: HWLAB 12:35
PROVIDERS: ATTENDING PHYSICIAN Internal Medicine Hematology & Oncology; FAMILY PHYSICIAN Family Medicine
DX: D45 Polycythemia vera (principal)
CPT/HCPCS: 36415; 85025

== ENCOUNTER → 2024-11-27 11:21 | Outpatient (REF) | payer BC, SELFPAY ==
[2024-11-27 16:19] LABS: Hematocrit 36.7 % (37.0-47.0); Hemoglobin 10.7 g/dL (12.0-16.0); Mean Corp Hgb Conc. 29.2 g/dL (33.0-37.0); Mean Corpuscular Volume 97.3 fL (81.0-99.0); Platelet Count 564 10^3/uL (130-400); Red Cell Dist. Width 19.4 % (11.5-14.5)
[2024-11-27 16:45] LABS: Nucleated Red Blood Cells % 0.1 %
== END ==
LOC: HWLAB 11:21
PROVIDERS: ATTENDING PHYSICIAN Internal Medicine Hematology & Oncology; FAMILY PHYSICIAN Family Medicine
DX: D45 Polycythemia vera (principal)
CPT/HCPCS: 36415; 85025

== ENCOUNTER → 2024-12-08 09:38 | Outpatient (REF) | payer BC, SELFPAY ==
[2024-12-08 12:07] LABS: Hematocrit 36.8 % (37.0-47.0); Hemoglobin 10.6 g/dL (12.0-16.0); Mean Corp Hgb Conc. 28.8 g/dL (33.0-37.0); Mean Corpuscular Volume 96.3 fL (81.0-99.0); Platelet Count 306 10^3/uL (130-400); Red Cell Dist. Width 18.1 % (11.5-14.5)
[2024-12-08 12:34] LABS: Nucleated Red Blood Cells % 0 %
== END ==
LOC: HWLAB 09:38
PROVIDERS: ATTENDING PHYSICIAN Internal Medicine Hematology & Oncology; FAMILY PHYSICIAN Family Medicine
DX: D45 Polycythemia vera (principal)
CPT/HCPCS: 36415; 85025

== ENCOUNTER → 2024-12-12 09:07 | Outpatient (REF) | payer BC, SELFPAY ==
[2024-12-12 12:33] LABS: Reticulocyte Count 2.0 % (0.4-2.8)
[2024-12-12 12:56] LABS: ALT (SGPT) 23 U/L (0-35); AST (SGOT) 39 U/L (14-36); Albumin 4.4 g/dl (3.5-5.0); Alkaline Phosphatase 107 U/L (38-126); Blood Urea Nitrogen 15 mg/dl (7-17); Calcium 9.5 mg/dl (8.4-10.2); Carbon Dioxide 27 mmol/L (22-30); Chloride 106 mmol/L (98-107); Glucose 88 mg/dl (70-99); Iron 29 ug/dl (37-170); Potassium 4.5 mmol/L (3.5-5.1); Sodium 141 mmol/L (135-145); Total Protein 6.8 g/dl (6.3-8.2); eGFR 50.17
[2024-12-12 13:06] LABS: Total Iron Binding Capacity 497 ug/dl (265-497)
[2024-12-12 13:43] LABS: Ferritin 9.6 ng/ml (11.1-264.0)
[2024-12-12 14:14] LABS: Folate > 20.0 ng/ml (2.76-20)
[2024-12-12 16:26] LABS: LDH 331 U/L (120-246); Uric Acid 6.0 mg/dl (2.5-6.2)
[2024-12-12 18:39] LABS: Vitamin B12 > 1000 pg/ml (239-931)
== END ==
LOC: HWLAB 09:07
PROVIDERS: ATTENDING PHYSICIAN Internal Medicine Hematology & Oncology; FAMILY PHYSICIAN Family Medicine
DX: D45 Polycythemia vera (principal)
CPT/HCPCS: 36415; 80053; 82607; 82668; 82728; 82746; 83010; 83540; 83550; 83615; 84550; 85045; 85652; 86880

== ENCOUNTER → 2025-01-01 10:32 | Outpatient (REF) | payer MEDICARE, BC, SELFPAY ==
[2025-01-01 11:57] LABS: Hematocrit 37.5 % (37.0-47.0); Hemoglobin 10.5 g/dL (12.0-16.0); Mean Corp Hgb Conc. 28.0 g/dL (33.0-37.0); Mean Corpuscular Volume 98.4 fL (81.0-99.0); Platelet Count 411 10^3/uL (130-400); Red Cell Dist. Width 17.8 % (11.5-14.5)
[2025-01-01 12:34] LABS: Nucleated Red Blood Cells % 0 %
[2025-01-01 12:56] LABS: TSH 4.09 uIU/ml (0.47-4.68)
== END ==
LOC: HWLAB 10:32
PROVIDERS: ATTENDING PHYSICIAN Internal Medicine Hematology & Oncology; FAMILY PHYSICIAN Family Medicine; REFERRING PHYSICIAN Physician Assistant
DX: E03.9 Hypothyroidism, unspecified (principal); D45 Polycythemia vera
CPT/HCPCS: 36415; 84439; 84443; 85025

== ENCOUNTER → 2025-02-16 12:51 | Outpatient (REF) | payer MEDICARE, BC, SELFPAY ==
[2025-02-16 16:01] LABS: Hematocrit 38.6 % (37.0-47.0); Hemoglobin 11.1 g/dL (12.0-16.0); Mean Corp Hgb Conc. 28.8 g/dL (33.0-37.0); Mean Corpuscular Volume 93.9 fL (81.0-99.0); Platelet Count 342 10^3/uL (130-400); Red Cell Dist. Width 17.2 % (11.5-14.5)
[2025-02-16 21:24] LABS: Nucleated Red Blood Cells % 0 %
== END ==
LOC: HWLAB 12:51
PROVIDERS: ATTENDING PHYSICIAN Internal Medicine Hematology & Oncology; FAMILY PHYSICIAN Family Medicine
DX: D45 Polycythemia vera (principal)
CPT/HCPCS: 36415; 85025